=== PATIENT | male | born 1990 | race Hispanic/Latino ===

== ENCOUNTER 2017-07-05 20:05 | Emergency (ER) | payer SELFPAY ==
[2017-07-05] MEDS ORDERED: Adacel (T-DAP) 0.5 ML VIAL ONE (20:34)
== END 2017-07-05 21:10 | disposition home or self-care (01) ==
LOC: BURERS 20:05
DX: S01.81XA Laceration without foreign body of other part of head, initial encounter (principal); W26.9XXA Contact with unspecified sharp object(s), initial encounter
CPT/HCPCS: 12011; 90471; 90715

== ENCOUNTER 2019-02-26 01:54 | Emergency (ER) | payer SELFPAY ==
[2019-02-26] MEDS ORDERED: Bacitracin Zinc 1 Packet ONE (02:24)
== END 2019-02-26 02:52 | disposition home or self-care (01) ==
LOC: BURERS 01:54
DX: S71.112A Laceration without foreign body, left thigh, initial encounter (principal); F10.129 Alcohol abuse with intoxication, unspecified; F17.210 Nicotine dependence, cigarettes, uncomplicated; W26.8XXA Contact with other sharp object(s), not elsewhere classified, initial encounter
CPT/HCPCS: 12002

== ENCOUNTER 2020-11-24 13:09 | Emergency (ER) | payer SELFPAY ==
[2020-11-24] MEDS ORDERED: Lorazepam 2 MG/ML VIAL ONE (13:34)
[2020-11-24] MEDS ORDERED: Ibuprofen 800 MG TAB ONE (14:13)
== END 2020-11-24 14:57 | disposition home or self-care (01) ==
LOC: BURERS 13:09
DX: R09.1 Pleurisy (principal); F17.210 Nicotine dependence, cigarettes, uncomplicated
CPT/HCPCS: 93005; 96372; J2060

== ENCOUNTER 2025-06-25 13:48 | Emergency (ER) | payer BC, SELFPAY ==
[2025-06-25] MEDS ORDERED: predniSONE 20 MG TAB ONE ×2 (14:15→14:16)
== END 2025-06-25 15:50 | disposition home or self-care (01) ==
LOC: BURERS 13:48
DX: J98.01 Acute bronchospasm (principal); J70.5 Respiratory conditions due to smoke inhalation; F17.210 Nicotine dependence, cigarettes, uncomplicated
CPT/HCPCS: 71046; J7512